=== PATIENT | male | born 1965 | race Hispanic/Latino ===

== ENCOUNTER 2017-09-02 09:53 | Emergency (ER) | payer BC ==
[~2017-09-02] VITALS: Ht 172.7 cm; Wt 90.0 kg
[2017-09-02 10:50] LABS: HEMATOCRIT 42.5 % (39.0-50.0); HEMOGLOBIN 14.4 g/dl (14.0-18.0); IMMATURE GRANULOCYTES 0.6 % (0.0-1.0); MEAN CELL VOLUME 86.7 fL CALC (80.0-100.0); MEAN CORPUSCULAR HGB 29.4 pG CALC (26.0-32.0); MEAN CORPUSCULAR HGB CONC 33.9 g/L CALC (32.0-36.0); NEUT# 3.76 thou/uL (1.82-7.42); RED BLOOD COUNT 4.9 mill/uL (4.70-6.10); RED CELL DISTRI WIDTH 11.9 % (11.5-15.5)
[2017-09-02 10:59] LABS: ALBUMIN 4.5 g/dL (3.2-5.0); ALKALINE PHOSPHATASE 91 u/l (38-126); ANION GAP 17 (6-22 (CALC)); BILIRUBIN, TOTAL 0.3 mg/dL (0.0-1.4); BUN 20 mg/dL (9-20); BUN/CREATININE RATIO 18 (12-20 (CALC)); CALCIUM 10.1 mg/dL (8.4-10.2); CARBON DIOXIDE 27 mmol/l (22-30); CHLORIDE 105 mmol/l (95-108); CREATININE 1.1 mg/dL (0.7-1.3); GFR > 60 ML/MIN (>=60 (CALC)); GFR FOR AFR.AMER. > 60 ML/MIN (>=60 (CALC)); GLUCOSE 125 mg/dL (75-110); POTASSIUM 4.6 mmol/l (3.5-5.1); SGOT/AST 19 u/l (17-59); SGPT/ALT 35 u/l (21-72); SODIUM 145 mmol/l (137-146); TOTAL PROTEIN 7.2 g/dL (6.3-8.2)
[2017-09-02 11:16] LABS: URINE BILIRUBIN - DIPSTICK NEGATIVE (NEGATIVE); URINE BLOOD DIPSTICK SMALL (NEGATIVE); URINE COLOR YELLOW; URINE GLUCOSE - DIPSTICK NEGATIVE (NEGATIVE); URINE KETONE NEGATIVE (NEGATIVE); URINE LEUK ESTERASE NEGATIVE (NEGATIVE); URINE NITRITE - DIPSTICK NEGATIVE (Negative); URINE PH 5.5 (4.5-8.0); URINE PROTEIN - DIPSTICK NEGATIVE (NEG-TRACE); URINE SPECIFIC GRAVITY 1.015; URINE UROBILINOGEN - DIPSTICK 0.2 E.U./dL (0.2)
[2017-09-02 11:21] LABS: URINE CLARITY CLEAR
[2017-09-02 11:22] LABS: URINE SQUAMOUS EPITHELIAL CELL FEW EPI/hpf (0-FEW)
[2017-09-02 11:27] VITALS: BP 154/75
== END 2017-09-02 11:29 | disposition home or self-care (01) | DRG 948 ==
LOC: ED 09:53
PROVIDERS: Emergency Medicine
DX: R41.0 Disorientation, unspecified (principal); R56.9 Unspecified convulsions
CPT/HCPCS: J1953; J2060